=== PATIENT | male | born 1960 | race Caucasian/White ===

== ENCOUNTER 2017-10-22 11:52 | Emergency (ER) | payer OTHER ==
[~2017-10-22] VITALS: Ht 175.3 cm; Wt 117.9 kg
[~2017-10-22 11:52] MED LIST: HYDR-971 PO
[2017-10-22] MEDS ORDERED: 0.9 % SODIUM CHLORIDE 10 ML DISP.SYRIN. IV PRN (12:15)
[2017-10-22 12:24] LABS: BASO # 0.1 x10^3/uL (0.0-0.2); BASO % 1 % (0-3); EOS # 0.3 x10^3/uL (0.0-0.7); EOS % 4 % (0-3); HEMATOCRIT 50.6 % (39.0-53.0); HEMOGLOBIN 17.4 g/dL (13.0-17.5); LYMPH # 1.5 x10^3/uL (1.0-4.8); LYMPH % 18 % (24-48); MEAN CORPUSCULAR HEMOGLOBIN 33 pg (25-35); MEAN CORPUSCULAR HGB CONC 34 g/dL (31-37); MEAN CORPUSCULAR VOLUME 97 fL (79-100); MONO # 0.8 x10^3/uL (0.0-1.1); MONO % 10 % (0-9); NEUT # 5.5 x10^3uL (1.8-7.7); NEUT % 67 % (31-73); PLATELET COUNT 169 x10^3/uL (140-400); RED BLOOD COUNT 5.24 x10^6/uL (4.30-5.70); RED CELL DISTRIBUTION WIDTH 13.1 % (11.5-14.5); WHITE BLOOD COUNT 8.2 x10^3/uL (4.0-11.0)
--- NOTE | 2017-10-22 12:46 | EKG ---
[address] [address] Test Date: 2017-10-22 Test Time: 11:56:52 Pat Name: RAMÍREZ ONEAL Department: Room: Gender: M Clinical Interviewer: : 1960 Requested By: OMA ARTHUR Order Number: [id number] Reading MD: Bill Verma MD Measurements Intervals [place] Rate: 81 P: 36 SD: 146 QRS: 2 QRSD: 84 T: 31 QT: 330 QTc: 384 Interpretive Statements SINUS RHYTHM Electronically Signed On 10-24-2017 16:38:06 CDT by Bill Verma MD
[2017-10-22] MEDS: IV NORMAL SALINE 1,000ML 1,000 ML IV SCH (12:50)
[2017-10-22] MEDS: ASPIRIN 81 MG TAB.CHEW PO ONE (12:51)
--- NOTE | 2017-10-22 12:55 | RAD ---
PORTABLE CHEST 1V Clinical Indication: SHORT OF BREATH, PALPITATIONS Comparison: Frontal chest at 01/12/2005. Findings: Mildly tortuous thoracic aorta. Cardiac size normal. There are numerous tiny calcified nodules in the lungs bilaterally. Nodules probably calcified granulomas in the absence of history of cancer. Lungs are otherwise clear. There is no pneumothorax. No pleural effusion is appreciated. No acute bone abnormality. IMPRESSION: No acute cardiopulmonary process. Electronically signed by: Sergo Bermudez MD (10/22/2017 12:52 PM) [id number]
[2017-10-22 13:01] LABS: ALBUMIN 3.9 g/dL (3.4-5.0); CALCIUM 10.1 mg/dL (8.5-10.1); CREATININE 1.1 mg/dL (0.7-1.3); DIRECT BILIRUBIN 0.2 mg/dL (0.0-0.2); GFR 68.8; MAGNESIUM 1.9 mg/dL (1.8-2.4); TOTAL BILIRUBIN 0.9 mg/dL (0.2-1.0); TOTAL PROTEIN 7.2 g/dL (6.4-8.2)
[2017-10-22 13:44] LABS: BARBITURATES NEG (NEG); BENZODIAZEPINES NEG (NEG); CANNABINOIDS NEG (NEG); COCAINE NEG (NEG); METHADONE NEG (NEG); OPIATES NEG (NEG); PHENCYCLIDINE NEG (NEG)
[2017-10-22 13:47] LABS: BACTERIA,URINE 0 /HPF (0-FEW); BILIRUBIN,URINE NEG (NEG); CLARITY,URINE CLEAR; COLOR,URINE STRAW; GLUCOSE,URINE NEG (NEG); NITRITE,URINE NEG (NEG); RBC,URINE 0 /HPF (0-2); SQUAMOUS EPITHELIAL CELL,UR OCC /LPF; UROBILINOGEN,URINE 0.2 mg/dL (0.2 mg/dL); WBC,URINE 0 /HPF (0-4)
[2017-10-22 13:59] LABS: AMPHETAMINE/METHAMPHETAMINE NEG (NEG)
[2017-10-22] MEDS: IOHEXOL 300 MG/ML 75 ML VIAL. IV ONE (14:44)
--- NOTE | 2017-10-22 14:44 | PHYS DOC ---
Past History Past Medical History: Diabetes, DVT, High Cholesterol, Hypertension, UTI Past Surgical History: No Surgical History Alcohol Use: None Drug Use: None Adult General Chief Complaint Chief Complaint: CHEST PAIN HPI HPI he is a pleasant 49-year-old male with a known history of hypertension, hyperlipidemia and diabetes and also remote history of right lower extremity DVT requiring vein stripping who presents with palpitations and shortness of breath and been plaguing him for last 6 months. There is no patient comes in today is that while at work patient had some palpitations and some dizziness with some chest discomfort. He is noted that typically this occurs at night after he ate a meal but now this got progressively worse not occurs during the day as well. His is anywhere with him and she is worried that he is having a problem with his heart although he may not want to admit. He denies any shortness of breath at this time while at rest but is short of breath with these palpitations when they occur. They making mildly diaphoretic and mildly nauseous when he has them. He has not vomited denies any fevers, chills, recent URI symptoms, productive cough. Denies any recent antibiotic use, lower extremity swelling or pain that is new, recent trauma to his lower, denies any headache or weakness. Differential diagnosis: Acute myocardial ischemia, heart failure, cardiac tamponade, bronchospasm, pulmonary embolism, pneumothorax, pulmonary infection i.e. bronchitis or pneumonia, upper airway obstruction, anaphylaxis, aspiration , psychogenic, pulmonary contusion, toxidrome, pneumomediastinum, noncardiogenic pulmonary edema or ARDS, COPD, tuberculosis, cystic fibrosis, asthma, high altitude pulmonary edema, valvular dysfunction, cardiac dysrhythmia , stroke, neuromuscular diseases like myasthenia gravis gravis, ALS, Guillain- Solorzano syndrome, metabolic acidosis to include diabetic ketoacidosis, sepsis, and obstructive disorders like massive obesity Review of Systems Review of Systems Constitutional: Denies fever or chills [] Eyes: Denies change in visual acuity, redness, or eye pain [] HENT: Denies nasal congestion or sore throat [] Respiratory: Denies cough positive for shortness of breath and palpitations Cardiovascular: No additional information not addressed in HPI [] GI: Denies abdominal pain, vomiting, bloody stools or diarrhea positive for nausea[] : Denies dysuria or hematuria [] Musculoskeletal: Denies back pain or joint pain [] Integument: Denies rash or skin lesions [] Neurologic: Denies headache, focal weakness or sensory changes positive for acute dizziness with palpitations[] Endocrine: Denies polyuria or polydipsia [] All other systems were reviewed and found to be within normal limits, except as documented in this note. Current Medications Current Medications Current Medications Medications (Trade) Dose Ordered Sig/Breana Start Time Stop Time Status Last Admin Dose Admin Aspirin (Children'S Aspirin) 324 mg 1X ONCE 10/22/17 12:45 10/22/17 12:46 DC 10/22/17 12:51 324 MG Iohexol (Omnipaque 300 Mg/ml) 75 ml 1X ONCE 10/22/17 14:30 10/22/17 14:31 UNV Sodium Chloride (Normal Saline Flush) 10 ml QSHIFT PRN 10/22/17 12:15 Allergies Allergies Allergies Coded Allergies Type Severity Reaction Last Updated Verified No Known Drug Allergies 07/31/16 No Physical Exam Physical Exam Patient's vital signs recorded on the chart are unremarkable. Constitutional: Well developed, well nourished, he is slightly obese nondiaphoretic in appearance pale no acute distress, non-toxic appearance. [] HENT: Normocephalic, atraumatic, bilateral external ears normal, oropharynx moist, no oral exudates, nose normal. [] Eyes: PERRLA, EOMI, conjunctiva normal, no discharge. [] Neck: Normal range of motion, no tenderness, supple, no stridor. [] Cardiovascular:Heart rate regular rhythm, no murmur [] Lungs & Thorax: Bilateral breath sounds clear to auscultation [] Abdomen: Bowel sounds normal, soft, no tenderness, no masses, no pulsatile masses. [] Skin: Warm, dry, no erythema, no rash. [] Back: No tenderness, no CVA tenderness. [] Extremities: No tenderness, no cyanosis, no clubbing, ROM intact, no edema. [] Neurologic: Alert and oriented X 3, normal motor function, normal sensory function, no focal deficits noted. Cranial nerves II-12 are intact patient has normal speech no change in vision [] Psychologic: Affect normal, judgement normal, mood normal. [] Current Patient Data Vital Signs Vital Signs Date Time Temp Pulse Resp B/P (MAP) Pulse Ox O2 Delivery O2 Flow Rate FiO2 10/22/17 14:10 71 18 131/94 (106) 99 Room Air 10/22/17 12:25 98.7 Lab Results Laboratory Tests Test 10/22/17 12:06 10/22/17 12:51 White Blood Count 8.2 x10^3/uL (4.0-11.0) Red Blood Count 5.24 x10^6/uL (4.30-5.70) Hemoglobin 17.4 g/dL (13.0-17.5) Hematocrit 50.6 % (39.0-53.0) Mean Corpuscular Volume 97 fL (79-100) Mean Corpuscular Hemoglobin 33 pg (25-35) Mean Corpuscular Hemoglobin Concent 34 g/dL (31-37) Red Cell Distribution Width 13.1 % (11.5-14.5) Platelet Count 169 x10^3/uL (140-400) Neutrophils (%) (Auto) 67 % (31-73) Lymphocytes (%) (Auto) 18 % (24-48) L Monocytes (%) (Auto) 10 % (0-9) H Eosinophils (%) (Auto) 4 % (0-3) H Basophils (%) (Auto) 1 % (0-3) Neutrophils # (Auto) 5.5 x10^3uL (1.8-7.7) Lymphocytes # (Auto) 1.5 x10^3/uL (1.0-4.8) Monocytes # (Auto) 0.8 x10^3/uL (0.0-1.1) Eosinophils # (Auto) 0.3 x10^3/uL (0.0-0.7) Basophils # (Auto) 0.1 x10^3/uL (0.0-0.2) D-Dimer ([place]) 1.51 mg/L (0.00-0.50) H Sodium Level 140 mmol/L (136-145) Potassium Level 4.0 mmol/L (3.5-5.1) Chloride Level 102 mmol/L (98-107) Carbon Dioxide Level 29 mmol/L (21-32) Anion Gap 9 (6-14) Blood Urea Nitrogen 13 mg/dL (8-26) Creatinine 1.1 mg/dL (0.7-1.3) Estimated GFR (Cockcroft-Gault) 68.8 Glucose Level 117 mg/dL (70-99) H Calcium Level 10.1 mg/dL (8.5-10.1) Magnesium Level 1.9 mg/dL (1.8-2.4) Total Bilirubin 0.9 mg/dL (0.2-1.0) Direct Bilirubin 0.2 mg/dL (0.0-0.2) Aspartate Amino Transferase (AST) 23 U/L (15-37) Alanine Aminotransferase (ALT) 34 U/L (16-63) Alkaline Phosphatase 84 U/L (46-116) Creatine Kinase 181 U/L (39-308) Creatine Kinase MB (Mass) 2.4 ng/mL (0.0-3.6) Creatine Kinase MB Relative Index 1.3 % (0-4) Troponin I Quantitative < 0.017 ng/mL (0-0.055) KM-Arr-C-Type Natriuretic Peptide 22 pg/mL (0-124) Total Protein 7.2 g/dL (6.4-8.2) Albumin 3.9 g/dL (3.4-5.0) Lipase 91 U/L (73-393) Urine Collection Type Unknown Urine Color Straw Urine Clarity Clear Urine pH 7.0 Urine Specific [place] 1.015 Urine Protein Neg (NEG-TRACE) Urine Glucose (UA) Neg mg/dL (NEG) Urine Ketones (Stick) Neg mg/dL (NEG) Urine Blood Neg (NEG) Urine Nitrite Neg (NEG) Urine Bilirubin Neg (NEG) Urine Urobilinogen Dipstick 0.2 mg/dL (0.2 mg/dL) Urine Leukocyte Esterase Neg (NEG) Urine RBC 0 /HPF (0-2) Urine WBC 0 /HPF (0-4) Urine Squamous Epithelial Cells Occ /LPF Urine Bacteria 0 /HPF (0-FEW) Urine Mucus Slight /LPF Urine Opiates Screen Neg (NEG) Urine Methadone Screen Neg (NEG) Urine Barbiturates Neg (NEG) Urine Phencyclidine Screen Neg (NEG) Urine Amphetamine/Methamphetamine Neg (NEG) Urine Benzodiazepines Screen Neg (NEG) Urine Cocaine Screen Neg (NEG) Urine Cannabinoids Screen Neg (NEG) Urine Ethyl Alcohol Neg (NEG) EKG EKG Patient's EKG read by me time an EKG 11:56 AM dosage heart rate of 81 which is normal, QRS width of 84 which is normal, ND intervals 146 which is normal. [place] [address] segment or T-wave changes consistent with acute cord ischemia this a normal EKG.[] Radiology/Procedures Radiology/Procedures [] [place] [address] IMAGING REPORT Signed PATIENT: RAMÍREZ BERMUDEZ ACCOUNT: [id number] : 1960 LOCATION: ER AGE: 57 SEX: M EXAM STATUS: REG ER ORD. PHYSICIAN: OMA ARTHUR MD REASON: palpitations shortness of breath PROCEDURE: PORTABLE CHEST 1V PORTABLE CHEST 1V Clinical Indication: SHORT OF BREATH, PALPITATIONS Comparison: Frontal chest at 01/12/2005. Findings: Mildly tortuous thoracic aorta. Cardiac size normal. There are numerous tiny calcified nodules in the lungs bilaterally. Nodules probably calcified granulomas in the absence of history of cancer. Lungs are otherwise clear. There is no pneumothorax. No pleural effusion is appreciated. No acute bone abnormality. IMPRESSION: No acute cardiopulmonary process. Electronically signed by: Sergo Bermudez MD (10/22/2017 12:52 PM) [id number] DICTATED AND SIGNED BY: SERGO BERMUDEZ MD DATE: 10/22/17 1248 CC: OMA ARTHUR MD; KAYLENE MELCHOR DO ~ [address] [address] IMAGING REPORT Signed PATIENT: RAMÍREZ BERMUDEZ ACCOUNT: [id number] : 1960 LOCATION: ER AGE: 57 SEX: M EXAM STATUS: REG ER ORD. PHYSICIAN: OMA ARTHUR MD REASON: chest pain sob with elevated dimer PROCEDURE: CT ANGIOGRAPHY CHEST PQRS Compliance Statement: One or more of the following individualized dose reduction techniques were utilized for this examination: 1. Automated exposure control 2. Adjustment of the mA and/or kV according to patient size 3. Use of iterative reconstruction technique CT CHEST WITH CONTRAST, PULMONARY ANGIOGRAM History: SOA WITH CHEST PAIN, INCREASED D-DIMER. NO SURGERY TO CHEST. Comparison: None. Technique: Helical CT of the chest was performed after the administration of 75 cc Omnipaque 300 intravenous contrast according to PE protocol. Axial and coronal reconstructions were obtained. 3-D MIP images were constructed to better evaluate the pulmonary arteries. Findings: Pulmonary arteries are adequately opacified. There is no evidence of pulmonary embolism. Thyroid is symmetric. No mediastinal adenopathy. Subcentimeter bilateral hilar lymph nodes. Great vessels are normal caliber. There is coronary artery disease. Cardiac size normal, no pericardial effusion. No pleural effusion. The central airways are patent. There are numerous calcified granulomas throughout the lungs. There is mild atelectasis or scarring in the inferior lingula. There is no lung consolidation. Mild dependent atelectasis in the lower lobes. Visualized upper abdomen unremarkable. No compression fracture in the thoracic spine. IMPRESSION: There is no CT evidence of pulmonary embolus. Electronically signed by: Sergo Bermudez MD (10/22/2017 3:12 PM) [id number] DICTATED AND SIGNED BY: SERGO BERMUDEZ MD DATE: 10/22/17 1505 CC: OMA ARTHUR MD; KAYLENE MELCHOR DO ~ Course & Med Decision Making Course & Med Decision Making Pertinent Labs and Imaging studies reviewed. (See chart for details) [] he presents with shortness of breath and palpitations that began increasing in frequency although he has no history of heart disease he has risk factors for diabetes, hypertension hyperlipidemia. Patient's initial presentation required me to get an EKG, chest x-ray, proBNP, troponin, CBC, CMP, magnesium level, TSH , d-dimer. he had an EKG 1156 was essentially normal, his chest x-ray read by radiology reviewed by me and shows no acute pulmonary infiltrate.Differential diagnosis: Acute myocardial ischemia, heart failure, cardiac tamponade, bronchospasm, pulmonary embolism, pneumothorax, pulmonary infection i.e. bronchitis or pneumonia, upper airway obstruction, anaphylaxis, aspiration, psychogenic, pulmonary contusion, toxidrome, pneumomediastinum, noncardiogenic pulmonary edema or ARDS, COPD, tuberculosis, cystic fibrosis, asthma, high altitude pulmonary edema, valvular dysfunction, cardiac dysrhythmia, stroke, neuromuscular diseases like myasthenia gravis gravis, ALS, Guillain-Solorzano syndrome, metabolic acidosis to include diabetic ketoacidosis, sepsis, and obstructive disorders like massive obesity was considered upon arrival based on patient's history of DVT in the past I screened him for a PE. Criteria: Age < than 50 years Heart rate < 100 Oxygen saturation > 95% No hemoptysis No estrogen use No prior DVT or PE No unilateral leg swelling No surgery or trauma requiring hospitalization within the prior 4 weeks Based on his history of prior DVT and age he falls out of the criteria. His d- dimer was elevated at 1.51 which required more valuation with a CT angios the chest. He has a normal BUN/creatinine, normal proBNP and normal troponin at this time my main concern is a PE. I have shared this admission with the patient is resting quietly and called what this time time is now 2:[address] angios the chest read by radiology reviewed by me deficits no acute sign of pulmonary embolus, right heart strain or other pulmonary tree. Patient is resting quietly, complete but negative proBNP and troponin at this time given duration of symptoms I think patient is safe to go home .History: Patient is low risk based on suspicious history, age and risk factors with score of_3 which is okay to go home and follow-up with a consumer banker Highly suspicious 2 points moderately suspicious 1. slightly suspicious 0 point EKG: ST segment depression 2. nonspecific repolarization disturbance 1. normal 0 point Age: Greater than 65 2 points, 65-45 1., less than 45 years old 0 points Risk factors:> 3 risk factors 2 points, 1-2 risk factors one point, no risk factors 0 point Troponin: > 2 times normal 2 points, 1-2 times normal 1., normal limits 0 point Total score: Score % pts MACE/n MACE Policy 0-3 32% 1.9% 0.05% Discharge 4-6 51% 413/3136 13% 1.3% Observation Risk management 7-10 17% 518/1045 50% 2.8% Observation Treatment, CAG Impression: Palpitations unclear etiology hypertension My discharge plan Although you have low risk chest pain you May still have heart disease despite having an apparent negative workup today. I would advise that you follow-up with your primary care doctor this week to arrange follow-up with her consumer banker. The consumer banker will help stratify your risk for heart injury in the future. Patient is advised that in the Emergency Department primary complaints are addressed and only in light of known signs and symptoms. Patient should return immediately to the emergency department if new signs and symptoms develop or patient's condition worsens in any way. At time of discharge patient was in stable condition and had verbalized understanding of the discharge instructions. Dragon Disclaimer Dragon Disclaimer This electronic medical record was generated, in whole or in part, using a voice recognition dictation system. Departure Departure: Impression: Primary Impression: Palpitations Additional Impression: Dyspnea Disposition: HOME, SELF-CARE Condition: STABLE Referrals: KAYLENE MELCHOR DO (PCP) Patient Instructions: Palpitations, Shortness of Breath Additional Instructions: discharge: I've spoken with the patient and/or caregivers. I've explained the patient's condition, diagnosis and treatment plan based on information available to me at this time. I've answered the patient's and/or caregivers questions and addressed any concerns. The patient and/or caregivers have a good understanding the patient's diagnosis, condition and treatment plan as can be expected at this point. Vital signs have been stabilized. The patient's condition is stable for discharge from the emergency department. The patient will pursue further outpatient evaluation with her primary care provider or other designated consulting physician as outlined in the discharge instructions. Patient and/or caregivers are agreeable to this plan of care and follow-up instructions have been explained in detail. The patient and/or caregivers have received these instructions in written format and expressed understanding of these discharge instructions. The patient and her caregivers are aware that if any significant change in condition or worsening of symptoms should prompt him to immediately return to this of the closest emergency department. If an emergent department is not readily available I would encourage him to call 911. Although you have low risk chest pain you May still have heart disease despite having an apparent negative workup today. I would advise that you follow-up with your primary care doctor this week to arrange follow-up with her consumer banker. The consumer banker will help stratify your risk for heart injury in the future. Patient is advised that in the Emergency Department primary complaints are addressed and only in light of known signs and symptoms. Patient should return immediately to the emergency department if new signs and symptoms develop or patient's condition worsens in any way. At time of discharge patient was in stable condition and had verbalized understanding of the discharge instructions. Problem Qualifiers OMA ARTHUR MD Oct 22, 2017 14:44
--- NOTE | 2017-10-22 15:15 | RAD ---
PQRS Compliance Statement: One or more of the following individualized dose reduction techniques were utilized for this examination: 1. Automated exposure control 2. Adjustment of the mA and/or kV according to patient size 3. Use of iterative reconstruction technique CT CHEST WITH CONTRAST, PULMONARY ANGIOGRAM History: SOA WITH CHEST PAIN, INCREASED D-DIMER. NO SURGERY TO CHEST. Comparison: None. Technique: Helical CT of the chest was performed after the administration of 75 cc Omnipaque 300 intravenous contrast according to PE protocol. Axial and coronal reconstructions were obtained. 3-D MIP images were constructed to better evaluate the pulmonary arteries. Findings: Pulmonary arteries are adequately opacified. There is no evidence of pulmonary embolism. Thyroid is symmetric. No mediastinal adenopathy. Subcentimeter bilateral hilar lymph nodes. Great vessels are normal caliber. There is coronary artery disease. Cardiac size normal, no pericardial effusion. No pleural effusion. The central airways are patent. There are numerous calcified granulomas throughout the lungs. There is mild atelectasis or scarring in the inferior lingula. There is no lung consolidation. Mild dependent atelectasis in the lower lobes. Visualized upper abdomen unremarkable. No compression fracture in the thoracic spine. IMPRESSION: There is no CT evidence of pulmonary embolus. Electronically signed by: Sergo Bermudez MD (10/22/2017 3:12 PM) [id number]
[2017-10-22 15:45] VITALS: BP 142/88
== END 2017-10-22 15:46 | disposition home or self-care (01) ==
LOC: ER 11:52
DX: R00.2 Palpitations (principal); R06.00 Dyspnea, unspecified; R07.89 Other chest pain; E11.9 Type 2 diabetes mellitus without complications; I10 Essential (primary) hypertension; E78.00 Pure hypercholesterolemia, unspecified; Z87.440 Personal history of urinary (tract) infections; Z86.718 Personal history of other venous thrombosis and embolism
CPT/HCPCS: 36415; 71045; 71275; 80048; 80076; 80307; 81001; 82553; 83690; 83735; 83880; 84443; 84484; 85025; 85379; 93005; 96360; 99285; Q9967; G0479; J7030